=== PATIENT | male | born 1935 | race African-American/Black ===

== ENCOUNTER 2024-06-08 18:04 | Inpatient (IN) | payer MEDICARE, OTHER ==
[~2024-06-08] VITALS: Ht 182.9 cm; Wt 68.5 kg
[~2024-06-08 18:04] MED LIST: AMLO10TA4 PO; DASA100T PO; FLOV44; FLUT1DIS INH; LIPITOR PO; OXYB5TAB21 PO; PROT40 PO; SPIRIVA; TOLT4CAP PO; VALS40TA4
[2024-06-08 18:39] LABS: BASOPHILS % 0.8 % (0.0-2.0); EOSINOPHILS % 1.6 % (0.0-5.0); HEMATOCRIT. 38.6 % (42.0-52.0); HEMOGLOBIN. 12.5 g/dL (14.0-18.0); LYMPHOCYTES % 16.3 % (20.0-50.0); MEAN CORPUSCULAR HEMOGLOBIN 30.2 pg (28.0-32.0); MEAN CORPUSCULAR HGB CONC 32.3 g/dL (31.0-37.0); MEAN CORPUSCULAR VOLUME 93.6 fL (80.0-94.0); MEAN PLATELET VOLUME 9.7 fl (7.4-10.4); MONOCYTES % 9.4 % (2.0-8.0); NEUTROPHILS % 71.9 % (40.0-76.0); PLATELET 262 x1000/uL (130-400); RED BLOOD CELL COUNT 4.13 mill/uL (4.7-6.1); WHITE BLOOD COUNT 4.4 x1000/uL (4.5-11.0)
[2024-06-08 18:46] LABS: CHLORIDE 102 mEq/L (98-107); SODIUM 140 mEq/L (136-145)
[2024-06-08 18:47] LABS: CALCIUM 9.5 mg/dL (8.7-10.4); CARBON DIOXIDE 29 mEq/L (21-32)
[2024-06-08 18:52] LABS: CREATININE 0.9 mg/dL (0.6-1.3); GLUCOSE 100 mg/dL (70-105); UREA NITROGEN BLOOD 17 mg/dL (9-23)
[2024-06-08 18:55] LABS: TROPONIN I HIGH SENSITIVITY 9 ng/L (3.0-53)
[2024-06-08 20:45] LABS: TROPONIN I HIGH SENSITIVITY 9 ng/L (3.0-53)
[2024-06-09] MEDS ORDERED: GUAIFENESIN 200MG/10ML SUGAR FREE UDC PO PRN
[2024-06-09] MEDS: POTASSIUM CHLORIDE 20MEQ TABLET SR PO NR (00:16)
[2024-06-09 01:14] LABS: T4 FREE 1.56 ng/dL (0.89-1.76)
[2024-06-09 01:15] LABS: THYROID STIMULATING HORMONE 2.64 uIU/mL (0.55-4.78)
[2024-06-09 03:33] VITALS: PULSE 94; RESP 16; O2SAT 97
[2024-06-09] MEDS: BUDESONIDE 0.5MG/2ML NEB HHN SCH (03:33)
[2024-06-09] MEDS: IPRATROPIUM/ALBUTEROL 0.5-3(2.5)MG/3ML NEB NEB PRN (03:33)
[2024-06-09] MEDS: SODIUM CHLORIDE 0.9% 3ML FLUSH IVF SCH (06:23)
[2024-06-09] MEDS: OXYBUTYNIN CHLORIDE 5MG TABLET PO SCH (09:00)
[2024-06-09] MEDS: POTASSIUM CHLORIDE 20MEQ TABLET SR PO SCH (09:00)
[2024-06-09] MEDS: DOCUSATE SODIUM 100MG CAPSULE PO SCH (09:00)
[2024-06-09 11:53] LABS: CLARITY URINE CLOUDY (CLEAR); COLOR URINE YELLOW (YELLOW); GLUCOSE URINE NEGATIVE (NEGATIVE); KETONES URINE NEGATIVE (NEGATIVE); LEUKOCYTE ESTERASE URINE 3+ (NEGATIVE); NITRITE URINE NEGATIVE (NEGATIVE); OCCULT BLOOD URINE TRACE (NEGATIVE); PROTEIN URINE TRACE (NEGATIVE)
[2024-06-09 12:03] LABS: BACTERIA URINE 3+; RBC URINE 0-2 /hpf (0-2); SQUAMOUS EPITHELIAL CELL URINE 1+ /lpf (RARE/1+); YEAST URINE NONE SEEN
[2024-06-09 12:40] VITALS: PULSE 82; RESP 12; O2SAT 97
[2024-06-09 20:39] VITALS: BP 128/64; PULSE 66; RESP 18; TEMP 36.6404
[2024-06-10] MEDS: CLONIDINE 0.1MG TABLET PO PRN (06:21)
[2024-06-10 07:42] LABS: BASOPHILS % 0.7 % (0.0-2.0); EOSINOPHILS % 2.1 % (0.0-5.0); HEMATOCRIT. 38.1 % (42.0-52.0); HEMOGLOBIN. 12.4 g/dL (14.0-18.0); MEAN CORPUSCULAR HEMOGLOBIN 30.6 pg (28.0-32.0); MEAN CORPUSCULAR HGB CONC 32.5 g/dL (31.0-37.0); MEAN CORPUSCULAR VOLUME 94.2 fL (80.0-94.0); MEAN PLATELET VOLUME 10.1 fl (7.4-10.4); MONOCYTES % 11.7 % (2.0-8.0); NEUTROPHILS % 65.5 % (40.0-76.0); PLATELET 246 x1000/uL (130-400); RED BLOOD CELL COUNT 4.05 mill/uL (4.7-6.1); RED CELL DISTRIBUTION WIDTH 13.7 % (11.6-14.6); WHITE BLOOD COUNT 3.3 x1000/uL (4.5-11.0)
[2024-06-10 07:48] LABS: CALCIUM 10.2 mg/dL (8.7-10.4); CARBON DIOXIDE 31 mEq/L (21-32); CHLORIDE 106 mEq/L (98-107); POTASSIUM 4.1 mEq/L (3.5-5.1); SODIUM 144 mEq/L (136-145)
[2024-06-10 07:54] LABS: GLUCOSE 87 mg/dL (70-105); UREA NITROGEN BLOOD 19 mg/dL (9-23)
[2024-06-10 08:00] VITALS: BP 120/79; PULSE 91; RESP 18; TEMP 36.22512; O2SAT 99
[2024-06-10 12:00] VITALS: BP 100/60; PULSE 88; RESP 18; TEMP 36.50292; O2SAT 96
[2024-06-10 16:00] VITALS: BP_SYST 168; BP_SYST 88; BP_SYST 89; BP_DIAS 52; BP_DIAS 55; BP_DIAS 73; PULSE 84; RESP 18; TEMP 36.28068; O2SAT 98
[2024-06-10] MEDS: DEXT 5%/0.45% NACL 1000ML 1,000 ML IV SCH (17:01)
[2024-06-10 20:00] VITALS: BP 104/64; PULSE 84; RESP 19; TEMP 36.72516; O2SAT 98
[2024-06-10] MEDS: AMLODIPINE 2.5MG TABLET PO SCH (21:00)
[2024-06-10] MEDS: ATORVASTATIN CALCIUM 10MG TABLET PO SCH (21:07)
[2024-06-11] VITALS (8 sets, daily range): BP systolic 87–147; BP diastolic 50–90; PULSE 86–117; RESP 18–24; TEMP 36.3918–38.22528; O2SAT 96–100
[2024-06-11 07:37] LABS: CHLORIDE 102 mEq/L (98-107); HEMATOCRIT. 38.3 % (42.0-52.0); HEMOGLOBIN. 12.1 g/dL (14.0-18.0); MEAN CORPUSCULAR HGB CONC 31.7 g/dL (31.0-37.0); MEAN CORPUSCULAR VOLUME 94.7 fL (80.0-94.0); MEAN PLATELET VOLUME 10.5 fl (7.4-10.4); PLATELET 202 x1000/uL (130-400); RED BLOOD CELL COUNT 4.04 mill/uL (4.7-6.1); RED CELL DISTRIBUTION WIDTH 14.4 % (11.6-14.6); SODIUM 135 mEq/L (136-145); WHITE BLOOD COUNT 13.6 x1000/uL (4.5-11.0)
[2024-06-11 07:38] LABS: CARBON DIOXIDE 25 mEq/L (21-32)
[2024-06-11 07:39] LABS: CALCIUM 9.5 mg/dL (8.7-10.4)
[2024-06-11 07:43] LABS: CREATININE 1.1 mg/dL (0.6-1.3); GLUCOSE 111 mg/dL (70-105)
[2024-06-11 07:44] LABS: TROPONIN I HIGH SENSITIVITY 7 ng/L (3.0-53); UREA NITROGEN BLOOD 19 mg/dL (9-23)
[2024-06-11 07:54] LABS: DIFFERENTIAL COMMENT 1
[2024-06-11] MEDS ORDERED: MAGNESIUM 4 G PREMIX 100 ML IV ONE (09:30)
[2024-06-11] MEDS: MAGNESIUM OXIDE 400MG TABLET PO SCH (10:27)
[2024-06-11] MEDS: ASPIRIN 81MG EC TABLET PO SCH (10:28)
[2024-06-11] MEDS: MAGNESIUM 2 G PREMIX 50 ML IV NR (11:19)
[2024-06-11] MEDS: MAGNESIUM 2G PREMIX 50ML IV NR (11:19)
[2024-06-11 17:15] LABS: PLATELET ESTIMATE NORMAL
[2024-06-12] VITALS (9 sets, daily range): BP systolic 72–191; BP diastolic 37–109; PULSE 92–108; RESP 17–18; TEMP 36.44736–38.50308; O2SAT 95–98
[2024-06-12] MEDS: ACETAMINOPHEN 325MG TABLET PO PRN (09:34)
[2024-06-13] VITALS (9 sets, daily range): BP systolic 89–159; BP diastolic 54–107; PULSE 66–127; RESP 16–22; TEMP 35.8362–37.72524; O2SAT 95–99
[2024-06-13] MEDS: ZOLPIDEM TARTRATE 5MG TABLET PO PRN (02:36)
[2024-06-13] MEDS: ONDANSETRON HCL 4MG/2ML INJ IV PRN (12:15)
[2024-06-13 12:57] LABS: HEMATOCRIT. 39.1 % (42.0-52.0); HEMOGLOBIN. 12.4 g/dL (14.0-18.0); MEAN CORPUSCULAR HGB CONC 31.6 g/dL (31.0-37.0); MEAN CORPUSCULAR VOLUME 95.1 fL (80.0-94.0); MEAN PLATELET VOLUME 10.6 fl (7.4-10.4); PLATELET 201 x1000/uL (130-400); RED BLOOD CELL COUNT 4.12 mill/uL (4.7-6.1); RED CELL DISTRIBUTION WIDTH 14.2 % (11.6-14.6); WHITE BLOOD COUNT 10.4 x1000/uL (4.5-11.0)
[2024-06-13 13:00] LABS: CHLORIDE 100 mEq/L (98-107); DIFFERENTIAL COMMENT 1; POTASSIUM 5.2 mEq/L (3.5-5.1); SODIUM 131 mEq/L (136-145)
[2024-06-13 13:01] LABS: CALCIUM 9.2 mg/dL (8.7-10.4); CARBON DIOXIDE 29 mEq/L (21-32)
[2024-06-13 13:06] LABS: CREATININE 1.1 mg/dL (0.6-1.3); GLUCOSE 180 mg/dL (70-105); UREA NITROGEN BLOOD 18 mg/dL (9-23)
[2024-06-13 14:28] LABS: PLATELET ESTIMATE NORMAL
[2024-06-14] VITALS (8 sets, daily range): BP systolic 90–137; BP diastolic 53–96; PULSE 91–139; RESP 18–22; TEMP 36.22512–36.78072; O2SAT 93–100
[2024-06-14 06:42] LABS: DIFFERENTIAL COMMENT 1; HEMATOCRIT. 37.1 % (42.0-52.0); HEMOGLOBIN. 11.9 g/dL (14.0-18.0); MEAN CORPUSCULAR HEMOGLOBIN 30.3 pg (28.0-32.0); MEAN CORPUSCULAR HGB CONC 32.2 g/dL (31.0-37.0); MEAN CORPUSCULAR VOLUME 94.3 fL (80.0-94.0); PLATELET 182 x1000/uL (130-400); RED BLOOD CELL COUNT 3.93 mill/uL (4.7-6.1); RED CELL DISTRIBUTION WIDTH 14.1 % (11.6-14.6); WHITE BLOOD COUNT 15.3 x1000/uL (4.5-11.0)
[2024-06-14 06:45] LABS: CARBON DIOXIDE 25 mEq/L (21-32); CHLORIDE 100 mEq/L (98-107); POTASSIUM 5.3 mEq/L (3.5-5.1); SODIUM 130 mEq/L (136-145)
[2024-06-14 06:47] LABS: CALCIUM 9.1 mg/dL (8.7-10.4)
[2024-06-14 06:51] LABS: CREATININE 1.2 mg/dL (0.6-1.3); GLUCOSE 141 mg/dL (70-105)
[2024-06-14 06:52] LABS: UREA NITROGEN BLOOD 19 mg/dL (9-23)
[2024-06-14] MEDS ORDERED: SODIUM POLYSTYRENE SULFONATE 15 G/60 ML BOT PO ONE (11:15)
[2024-06-14] MEDS: SODIUM ZIRCONIUM CYCLOSILICATE 10GM/PACKET PO NR (11:45)
[2024-06-14] MEDS ORDERED: MAGNESIUM 1 G PREMIX 100 ML IV SCH ×2 (13:30→14:00)
[2024-06-14 16:15] LABS: PLATELET ESTIMATE NORMAL
[2024-06-14] MEDS: VANCOMYCIN 1.25GM PMX (XELLIA) 250 ML IV NR (16:57)
[2024-06-14 17:45] LABS: CLARITY URINE TURBID (CLEAR); COLOR URINE YELLOW (YELLOW); GLUCOSE URINE NEGATIVE (NEGATIVE); KETONES URINE NEGATIVE (NEGATIVE); LEUKOCYTE ESTERASE URINE 3+ (NEGATIVE); NITRITE URINE POSITIVE (NEGATIVE); OCCULT BLOOD URINE 3+ (NEGATIVE); PH URINE 5.5 (4.5-8.0); PROTEIN URINE 1+ (NEGATIVE); SPECIFIC GRAVITY URINE 1.015 (1.005-1.030)
[2024-06-14 17:55] LABS: BACTERIA URINE 4+; SQUAMOUS EPITHELIAL CELL URINE FEW /lpf (RARE/1+); WBC URINE TNTC /hpf (0-2); YEAST URINE NONE SEEN
[2024-06-14] MEDS: DIPHENHYDRAMINE 50MG/ML VIAL IV PRN (21:11)
[2024-06-14] MEDS: CEFTRIAXONE 2GM/50ML 50 ML IV SCH (21:26)
[2024-06-15 04:00] VITALS: BP 120/72; PULSE 128; RESP 23; TEMP 36.61404; O2SAT 98
[2024-06-15 08:00] VITALS: BP 92/52; PULSE 107; RESP 19; TEMP 36.114; O2SAT 97
[2024-06-15 08:19] LABS: CHLORIDE 101 mEq/L (98-107); POTASSIUM 5.3 mEq/L (3.5-5.1); SODIUM 132 mEq/L (136-145)
[2024-06-15 08:22] LABS: CARBON DIOXIDE 25 mEq/L (21-32)
[2024-06-15 08:23] LABS: CALCIUM 9.1 mg/dL (8.7-10.4)
[2024-06-15 08:27] LABS: CREATININE 1.3 mg/dL (0.6-1.3); GLUCOSE 111 mg/dL (70-105)
[2024-06-15 08:28] LABS: ALANINE AMINOTRANSFERASE 31 IU/L (10-49); UREA NITROGEN BLOOD 25 mg/dL (9-23)
[2024-06-15 08:29] LABS: ALBUMIN 3.1 g/dL (3.2-4.8); ASPARTATE AMINOTRANSFERASE 44 IU/L (<34)
[2024-06-15 08:30] LABS: BILIRUBIN TOTAL 0.3 mg/dL (0.1-1.0); PROTEIN TOTAL 5.7 g/dL (6.0-8.3)
[2024-06-15] MEDS: VANCOMYCIN 750MG PREMIX 150 ML IV SCH (09:30)
[2024-06-15 12:00] VITALS: BP 111/60; PULSE 106; RESP 16; TEMP 36.61404; O2SAT 96
[2024-06-15 16:00] VITALS: BP 114/63; PULSE 73; RESP 16; TEMP 37.00296; O2SAT 89
[2024-06-15 20:00] VITALS: BP 99/60; PULSE 140; RESP 19; TEMP 36.50292; O2SAT 98
[2024-06-16 07:20] LABS: HEMATOCRIT. 32.1 % (42.0-52.0); HEMOGLOBIN. 10.5 g/dL (14.0-18.0); MEAN CORPUSCULAR HEMOGLOBIN 30.5 pg (28.0-32.0); MEAN CORPUSCULAR HGB CONC 32.6 g/dL (31.0-37.0); MEAN CORPUSCULAR VOLUME 93.5 fL (80.0-94.0); MEAN PLATELET VOLUME 10.7 fl (7.4-10.4); PLATELET 164 x1000/uL (130-400); RED BLOOD CELL COUNT 3.44 mill/uL (4.7-6.1); WHITE BLOOD COUNT 13.4 x1000/uL (4.5-11.0)
[2024-06-16 07:29] LABS: DIFFERENTIAL COMMENT 1
[2024-06-16 08:00] VITALS: BP 109/67; PULSE 94; RESP 20; TEMP 36.114; O2SAT 94
[2024-06-16] MEDS: ACETAMINOPHEN 325MG TABLET PO PRN (08:50)
[2024-06-16 10:50] LABS: CARBON DIOXIDE 24 mEq/L (21-32); CHLORIDE 102 mEq/L (98-107); POTASSIUM 4.3 mEq/L (3.5-5.1); SODIUM 132 mEq/L (136-145)
[2024-06-16 10:51] LABS: CALCIUM 8.4 mg/dL (8.7-10.4)
[2024-06-16 10:56] LABS: GLUCOSE 143 mg/dL (70-105); UREA NITROGEN BLOOD 24 mg/dL (9-23)
[2024-06-16 12:00] VITALS: BP 98/62; PULSE 81; RESP 20; TEMP 36.50292; O2SAT 94
[2024-06-16] MEDS: VANCOMYCIN 1GM/200ML PMX (BAXTER) IV SCH (13:01)
[2024-06-16 16:00] VITALS: BP 104/58; PULSE 82; RESP 20; TEMP 36.55848; O2SAT 94
[2024-06-16 17:43] LABS: PLATELET ESTIMATE NORMAL
[2024-06-16 20:00] VITALS: BP 107/56; PULSE 81; RESP 19; TEMP 36.33624; O2SAT 100
[2024-06-17] VITALS: BP 119/78; PULSE 76; RESP 18; TEMP 37.00296; O2SAT 98
[2024-06-17 04:00] VITALS: BP_SYST 116; BP_SYST 126; BP_DIAS 73; BP_DIAS 80; PULSE 75; PULSE 84; RESP 18; RESP 20; TEMP 36.55848; TEMP 36.9474; O2SAT 98
[2024-06-17 08:00] VITALS: BP 112/61; PULSE 75; RESP 18; TEMP 36.114; O2SAT 100
[2024-06-17 12:00] VITALS: BP 109/58; PULSE 82; RESP 18; TEMP 36.50292; O2SAT 99
[2024-06-17] MEDS: CEFAZOLIN 2GM/100ML 100 ML IV SCH (15:17)
[2024-06-17 16:00] VITALS: BP 108/79; PULSE 79; RESP 18; TEMP 36.3918; O2SAT 98
[2024-06-17 22:27] VITALS: BP 109/60; PULSE 100; RESP 19; TEMP 36.6696; O2SAT 96
[2024-06-18] VITALS: BP 109/66; PULSE 92; RESP 17; TEMP 36.6696; O2SAT 98
[2024-06-18 04:00] VITALS: BP 120/65; PULSE 95; RESP 19; TEMP 36.72516; O2SAT 98
[2024-06-18 06:46] LABS: CARBON DIOXIDE 27 mEq/L (21-32); CHLORIDE 107 mEq/L (98-107); HEMATOCRIT. 32.6 % (42.0-52.0); HEMOGLOBIN. 10.6 g/dL (14.0-18.0); MEAN CORPUSCULAR HEMOGLOBIN 30.6 pg (28.0-32.0); MEAN CORPUSCULAR HGB CONC 32.6 g/dL (31.0-37.0); MEAN CORPUSCULAR VOLUME 93.7 fL (80.0-94.0); MEAN PLATELET VOLUME 10.2 fl (7.4-10.4); PLATELET 184 x1000/uL (130-400); POTASSIUM 4.3 mEq/L (3.5-5.1); RED BLOOD CELL COUNT 3.48 mill/uL (4.7-6.1); RED CELL DISTRIBUTION WIDTH 14.5 % (11.6-14.6); SODIUM 138 mEq/L (136-145)
[2024-06-18 06:47] LABS: CALCIUM 8.6 mg/dL (8.7-10.4)
[2024-06-18 06:51] LABS: CREATININE 0.8 mg/dL (0.6-1.3); GLUCOSE 112 mg/dL (70-105)
[2024-06-18 06:52] LABS: UREA NITROGEN BLOOD 17 mg/dL (9-23)
[2024-06-18 07:11] LABS: DIFFERENTIAL COMMENT 1
[2024-06-18 08:00] VITALS: BP 126/71; PULSE 88; RESP 20; TEMP 36.55848; O2SAT 97
[2024-06-18 12:00] VITALS: BP 137/67; PULSE 84; RESP 18; TEMP 36.61404; O2SAT 100
[2024-06-18 13:19] LABS: PLATELET ESTIMATE NORMAL
[2024-06-18 16:00] VITALS: BP 110/71; PULSE 94; RESP 18; TEMP 36.55848; O2SAT 100
[2024-06-18 20:00] VITALS: BP 130/73; PULSE 59; RESP 20; TEMP 36.3918; O2SAT 97
[2024-06-19] VITALS: BP 130/65; PULSE 52; RESP 22; TEMP 36.28068; O2SAT 96
[2024-06-19 04:00] VITALS: BP 125/78; PULSE 54; RESP 18; TEMP 36.28068; O2SAT 96
[2024-06-19 06:50] LABS: CHLORIDE 107 mEq/L (98-107); POTASSIUM 4.4 mEq/L (3.5-5.1); SODIUM 135 mEq/L (136-145)
[2024-06-19 06:51] LABS: CALCIUM 8.7 mg/dL (8.7-10.4); CARBON DIOXIDE 26 mEq/L (21-32)
[2024-06-19 06:56] LABS: CREATININE 0.7 mg/dL (0.6-1.3)
[2024-06-19 06:57] LABS: GLUCOSE 173 mg/dL (70-105); UREA NITROGEN BLOOD 14 mg/dL (9-23)
[2024-06-19 07:03] LABS: HEMATOCRIT. 32.8 % (42.0-52.0); HEMOGLOBIN. 10.7 g/dL (14.0-18.0); MEAN CORPUSCULAR HEMOGLOBIN 30.4 pg (28.0-32.0); MEAN CORPUSCULAR HGB CONC 32.4 g/dL (31.0-37.0); MEAN CORPUSCULAR VOLUME 93.7 fL (80.0-94.0); MEAN PLATELET VOLUME 9.5 fl (7.4-10.4); PLATELET 214 x1000/uL (130-400); RED CELL DISTRIBUTION WIDTH 14.3 % (11.6-14.6); WHITE BLOOD COUNT 9.7 x1000/uL (4.5-11.0)
[2024-06-19 07:14] LABS: DIFFERENTIAL COMMENT 1
[2024-06-19 08:00] VITALS: BP 133/75; PULSE 97; RESP 20; TEMP 37.05852; O2SAT 97
[2024-06-19] MEDS ORDERED: LIDOCAINE HCL 1% 10 MG/ML 10ML VIAL ONE (10:12)
[2024-06-19 12:11] VITALS: BP 114/61; PULSE 91; RESP 18; TEMP 35.89176; O2SAT 96
[2024-06-19 16:00] VITALS: BP 125/73; PULSE 97; RESP 18; TEMP 36.28068; O2SAT 99
[2024-06-19 17:28] LABS: PLATELET ESTIMATE NORMAL
[2024-06-19 20:00] VITALS: BP 177/86; PULSE 102; RESP 22; TEMP 36.50292; O2SAT 100
[2024-06-20] VITALS: BP 154/8; PULSE 109; RESP 22; TEMP 36.6696; O2SAT 94
[2024-06-20 04:00] VITALS: BP 147/85; PULSE 113; RESP 20; TEMP 36.05844; O2SAT 98
[2024-06-20 06:47] LABS: HEMATOCRIT. 31.9 % (42.0-52.0); HEMOGLOBIN. 10.3 g/dL (14.0-18.0); MEAN CORPUSCULAR HEMOGLOBIN 29.8 pg (28.0-32.0); MEAN CORPUSCULAR HGB CONC 32.2 g/dL (31.0-37.0); MEAN CORPUSCULAR VOLUME 92.5 fL (80.0-94.0); MEAN PLATELET VOLUME 9.1 fl (7.4-10.4); PLATELET 226 x1000/uL (130-400); RED BLOOD CELL COUNT 3.45 mill/uL (4.7-6.1); RED CELL DISTRIBUTION WIDTH 14.2 % (11.6-14.6); WHITE BLOOD COUNT 8.9 x1000/uL (4.5-11.0)
[2024-06-20 06:49] LABS: CHLORIDE 106 mEq/L (98-107); POTASSIUM 4.6 mEq/L (3.5-5.1); SODIUM 136 mEq/L (136-145)
[2024-06-20 06:50] LABS: CALCIUM 8.5 mg/dL (8.7-10.4); CARBON DIOXIDE 27 mEq/L (21-32)
[2024-06-20 06:55] LABS: CREATININE 0.8 mg/dL (0.6-1.3); DIFFERENTIAL COMMENT 1; GLUCOSE 124 mg/dL (70-105); UREA NITROGEN BLOOD 18 mg/dL (9-23)
[2024-06-20 08:00] VITALS: BP 145/74; PULSE 89; RESP 22; TEMP 36.50292; O2SAT 98
[2024-06-20 12:00] VITALS: BP 129/73; PULSE 95; RESP 20; TEMP 37.00296; O2SAT 96
[2024-06-20 16:00] VITALS: BP 129/72; PULSE 96; RESP 20; TEMP 36.55848; O2SAT 96
[2024-06-20 17:25] LABS: PLATELET ESTIMATE NORMAL
[2024-06-20 20:00] VITALS: BP 138/76; PULSE 96; RESP 20; TEMP 36.72516; O2SAT 96
[2024-06-21] VITALS: BP 129/75; PULSE 86; RESP 19; TEMP 36.61404; O2SAT 98
[2024-06-21 04:00] VITALS: BP 157/81; PULSE 85; RESP 19; TEMP 36.61404; O2SAT 98
[2024-06-21 08:00] VITALS: BP 138/73; PULSE 82; RESP 20; TEMP 36.33624; O2SAT 98
[2024-06-21 12:00] VITALS: BP 135/76; PULSE 79; RESP 20; TEMP 36.16956; O2SAT 98
[2024-06-21 16:00] VITALS: BP 139/71; PULSE 76; RESP 18; TEMP 36.16956; O2SAT 98
[2024-06-21 20:00] VITALS: BP 112/73; PULSE 91; RESP 20; TEMP 36.61404; O2SAT 99
[2024-06-22] VITALS: BP 146/75; PULSE 99; RESP 20; TEMP 36.3918; O2SAT 97
[2024-06-22] MEDS: TAMSULOSIN HCL 0.4MG SR CAPSULE PO SCH (00:59)
[2024-06-22 04:00] VITALS: BP 115/68; PULSE 102; RESP 20; TEMP 36.50292; O2SAT 95
[2024-06-22 08:00] VITALS: BP 127/74; PULSE 98; RESP 20; TEMP 36.33624; O2SAT 96
[2024-06-22 12:00] VITALS: BP 113/64; PULSE 96; RESP 20; TEMP 36.44736; O2SAT 96
[2024-06-22 16:00] VITALS: BP 126/63; PULSE 95; RESP 20; TEMP 36.05844; O2SAT 96
[2024-06-22 20:00] VITALS: BP 136/70; PULSE 96; RESP 20; TEMP 36.78072; O2SAT 96
[2024-06-23] VITALS: BP 104/71; PULSE 116; RESP 20; TEMP 37.00296; O2SAT 96
[2024-06-23 04:00] VITALS: BP 137/77; PULSE 95; RESP 19; TEMP 36.72516; O2SAT 98
[2024-06-23 08:00] VITALS: BP 124/63; PULSE 90; RESP 20; TEMP 36.44736; O2SAT 98
[2024-06-23 12:00] VITALS: BP 102/66; PULSE 89; RESP 19; TEMP 37.00296; O2SAT 99
[2024-06-23 16:00] VITALS: BP 112/70; PULSE 80; RESP 19; TEMP 36.6696; O2SAT 99
[2024-06-23 20:00] VITALS: BP 122/99; PULSE 108; RESP 20; TEMP 36.50292; O2SAT 98
[2024-06-23] MEDS: TAMSULOSIN HCL 0.4MG SR CAPSULE PO SCH (20:26)
[2024-06-24] VITALS: BP 125/100; PULSE 107; RESP 20; TEMP 36.22512; O2SAT 98
[2024-06-24 04:00] VITALS: BP 163/90; PULSE 95; RESP 19; TEMP 36.3918; O2SAT 98
[2024-06-24 08:00] VITALS: BP 112/79; PULSE 83; RESP 18; TEMP 36.61404; O2SAT 96
[2024-06-24 12:00] VITALS: BP 134/76; PULSE 55; RESP 22; TEMP 36.3918; O2SAT 99
[2024-06-24 16:00] VITALS: BP 140/80; PULSE 101; RESP 21; TEMP 36.44736; O2SAT 98
[2024-06-24 20:00] VITALS: BP 132/86; PULSE 107; RESP 18; TEMP 36.72516; O2SAT 98
[2024-06-25 04:00] VITALS: BP 136/77; PULSE 98; RESP 18; TEMP 36.61404; O2SAT 95
[2024-06-25 08:00] VITALS: BP 135/82; PULSE 95; RESP 18; TEMP 36.6696; O2SAT 100
[2024-06-25 12:00] VITALS: BP 140/78; PULSE 94; RESP 22; TEMP 36.3918; O2SAT 95
[2024-06-25 16:00] VITALS: BP 143/85; PULSE 99; RESP 18; TEMP 36.78072; O2SAT 100
[2024-06-25 20:00] VITALS: BP 128/79; PULSE 103; RESP 20; TEMP 36.3918; O2SAT 97
[2024-06-26] VITALS: BP 143/75; PULSE 103; RESP 20; TEMP 36.28068; O2SAT 99
[2024-06-26 04:00] VITALS: BP 157/68; PULSE 99; RESP 20; TEMP 36.28068; O2SAT 98
[2024-06-26 08:00] VITALS: BP 140/69; PULSE 92; RESP 20; TEMP 36.16956; O2SAT 97
[2024-06-26 12:00] VITALS: BP 154/86; PULSE 83; RESP 20; TEMP 36.114; O2SAT 97
[2024-06-26 16:00] VITALS: BP 135/63; PULSE 85; RESP 20; TEMP 36.16956; O2SAT 97
[2024-06-26 20:00] VITALS: BP 143/86; PULSE 90; RESP 20; TEMP 36.33624; O2SAT 98
[2024-06-27] VITALS: BP 136/89; PULSE 93; RESP 18; TEMP 36.50292; O2SAT 99
[2024-06-27 04:00] VITALS: BP 147/90; PULSE 95; RESP 17; TEMP 36.44736; O2SAT 99
[2024-06-27 08:00] VITALS: BP 128/61; PULSE 68; RESP 20; TEMP 36.22512; O2SAT 96
[2024-06-27] MEDS: MAGNESIUM/ALUMINUM HYDROXIDE/SIMETHICONE 30ML UDC PO PRN (08:29)
[2024-06-27 12:00] VITALS: BP 145/91; PULSE 86; RESP 20; TEMP 36.114; O2SAT 97
[2024-06-27 16:00] VITALS: BP 121/62; PULSE 80; RESP 19; TEMP 36.16956; O2SAT 96
[2024-06-27] MEDS: MENTHOL/LANOLIN/CALAMINE/ZN OX OINT 71GM TOP SCH (17:11)
[2024-06-27 20:00] VITALS: BP 130/61; PULSE 64; RESP 20; TEMP 36.22512; O2SAT 99
[2024-06-28] VITALS (8 sets, daily range): BP systolic 88–153; BP diastolic 54–80; PULSE 62–85; RESP 16–20; TEMP 35.89176–36.55848; O2SAT 96–100
[2024-06-28 07:07] LABS: PREALBUMIN 9.5 mg/dl (10.0-40.0)
[2024-06-28] MEDS: RISPERIDONE 1MG TABLET PO SCH (21:28)
[2024-06-29 04:00] VITALS: BP 113/69; PULSE 79; RESP 18; TEMP 36.05844; O2SAT 100
[2024-06-29 08:00] VITALS: BP 129/66; PULSE 80; RESP 21; TEMP 36.61404; O2SAT 95
[2024-06-29 12:00] VITALS: BP 136/76; PULSE 68; RESP 16; TEMP 36.44736; O2SAT 99
[2024-06-29 16:00] VITALS: BP 116/63; PULSE 71; RESP 20; TEMP 36.3918; O2SAT 95
[2024-06-29] MEDS: RISPERIDONE 1MG TABLET PO SCH (16:10)
[2024-06-29 20:26] VITALS: BP 129/66; PULSE 80; RESP 21; TEMP 36.61404; O2SAT 95
[2024-06-29] MEDS ORDERED: RISPERIDONE 1MG TABLET PO SCH (21:00)
[2024-06-30 07:19] LABS: CALCIUM 8.2 mg/dL (8.7-10.4); CARBON DIOXIDE 32 mEq/L (21-32); CHLORIDE 108 mEq/L (98-107); POTASSIUM 3.3 mEq/L (3.5-5.1); SODIUM 142 mEq/L (136-145)
[2024-06-30 07:23] LABS: GLUCOSE 129 mg/dL (70-105)
[2024-06-30 07:24] LABS: CREATININE 0.5 mg/dL (0.6-1.3)
[2024-06-30 07:25] LABS: UREA NITROGEN BLOOD 9 mg/dL (9-23)
[2024-06-30 07:27] LABS: EOSINOPHILS % 1.8 % (0.0-5.0); HEMOGLOBIN. 9.5 g/dL (14.0-18.0); LYMPHOCYTES % 14.1 % (20.0-50.0); MEAN CORPUSCULAR HEMOGLOBIN 30.6 pg (28.0-32.0); MEAN CORPUSCULAR HGB CONC 32.8 g/dL (31.0-37.0); MEAN CORPUSCULAR VOLUME 93.3 fL (80.0-94.0); MEAN PLATELET VOLUME 9.3 fl (7.4-10.4); MONOCYTES % 6.9 % (2.0-8.0); NEUTROPHILS % 76.2 % (40.0-76.0); PHOSPHORUS 2.7 mg/dL (2.5-4.9); PLATELET 260 x1000/uL (130-400); RED CELL DISTRIBUTION WIDTH 13.9 % (11.6-14.6); WHITE BLOOD COUNT 2.5 x1000/uL (4.5-11.0)
[2024-06-30 08:00] VITALS: BP 143/78; PULSE 64; RESP 20; TEMP 36.72516; O2SAT 98
[2024-06-30] MEDS: POTASSIUM CHLORIDE 20MEQ TABLET SR PO NR (11:27)
[2024-06-30 12:00] VITALS: BP 96/57; PULSE 64; RESP 64; TEMP 37.05852; O2SAT 97
[2024-06-30 16:00] VITALS: BP 116/64; PULSE 60; RESP 20; TEMP 37.00296; O2SAT 98
[2024-06-30 20:00] VITALS: BP_SYST 79; PULSE 74; RESP 20; TEMP 35.66952; O2SAT 85
[2024-06-30] MEDS: RISPERIDONE 1MG TABLET PO SCH (21:57)
[2024-07-01] VITALS (7 sets, daily range): BP systolic 97–128; BP diastolic 42–85; PULSE 60–88; RESP 18–21; TEMP 35.50284–37.00296; O2SAT 97–100
== END 2024-07-01 21:43 | DRG 871 ==
LOC: ER 18:04 → MICUSO 21:17 → 5WST 06-09 16:04 → 7EST 06-09 18:44 → 6WST 06-24 10:57
PROVIDERS: ADMIT Internal Medicine; ATTEND Internal Medicine
PROC: 02HV33Z Insertion of Infusion Device into Superior Vena Cava, Percutaneous Approach (ICD-10-PCS; principal; 2024-06-19)
PROC: B548ZZA Ultrasonography of Superior Vena Cava, Guidance (ICD-10-PCS; 2024-06-19)
DX: A41.01 Sepsis due to Methicillin susceptible Staphylococcus aureus (principal); E43 Unspecified severe protein-calorie malnutrition; E87.1 Hypo-osmolality and hyponatremia; N39.0 Urinary tract infection, site not specified; J44.9 Chronic obstructive pulmonary disease, unspecified; E78.00 Pure hypercholesterolemia, unspecified; Z20.822 Contact with and (suspected) exposure to COVID-19; E87.6 Hypokalemia; N40.0 Benign prostatic hyperplasia without lower urinary tract symptoms; I10 Essential (primary) hypertension; E83.42 Hypomagnesemia; R41.89 Other symptoms and signs involving cognitive functions and awareness; E87.5 Hyperkalemia; E88.09 Other disorders of plasma-protein metabolism, not elsewhere classified; B96.20 Unspecified Escherichia coli [E. coli] as the cause of diseases classified elsewhere; G90.4 Autonomic dysreflexia; F03.90 Unspecified dementia, unspecified severity, without behavioral disturbance, psychotic disturbance, mood disturbance, and anxiety; B95.61 Methicillin susceptible Staphylococcus aureus infection as the cause of diseases classified elsewhere; Z95.0 Presence of cardiac pacemaker; Z79.82 Long term (current) use of aspirin; Z87.440 Personal history of urinary (tract) infections; Z87.891 Personal history of nicotine dependence; Z68.20 Body mass index [BMI] 20.0-20.9, adult
CPT/HCPCS: 36415; 36573; 71045; 72170; 80048; 80053; 80202; 81003; 82040; 82962; 83605; 83735; 83880; 84100; 84134; 84145; 84439; 84443; 84484; 85025; 85379; 87077; 87186; 87400; 87426; 92610; 93005; 93306; 93880; 94640; 97110; 97162; 97166; 97530; 97535; 99285; C1725; C1893; J0690; J0696; J1200; J2405; J3370; J3475; J3490; J7626